=== PATIENT | female | born 1970 | race Caucasian/White ===

== ENCOUNTER 2018-10-07 19:43 | Emergency (ER) | payer OTHER ==
[~2018-10-07] VITALS: Ht 160 cm; Wt 111.1 kg
[~2018-10-07 19:43] MED LIST: ACETAMINOOPHEN-1 TAB PO; CATAFLAM50 MG PO; CIPRO250 MG PO; INTESTINEX680 MG PO; URETRON D-S TAB1 TAB PO
[2018-10-08] MEDS ORDERED: ZANTAC300 MG PO (05:09)
[2018-10-08] MEDS ORDERED: PROTONIX40 MG PO (05:09)
== END 2018-10-08 05:17 | disposition home or self-care (01) ==
LOC: ER 19:43
DX: R10.13 Epigastric pain (principal)